=== PATIENT | male | born 1945 | race Caucasian/White ===

== ENCOUNTER 2022-04-02 08:46 | Outpatient (CLI) | payer MEDICARE, OTHER ==
[2022-04-02 09:44] LABS: Estimated GFR-MDRD - POC Greater than 90
== END 2022-04-02 08:47 | disposition home or self-care (01) ==
LOC: CSHCT 08:46
PROVIDERS: ATTEND Internal Medicine Cardiovascular Disease
DX: I77.810 Thoracic aortic ectasia (principal)
CPT/HCPCS: 71275; 82565